=== PATIENT | female | born 1950 | race Caucasian/White ===

== ENCOUNTER → 2017-01-29 | Outpatient (CLI) | payer MEDICARE, OTHER | END | disposition home or self-care (01) | LOC: LAB.O 16:01 | PROVIDERS: ATTEND Nurse Practitioner Family | DX: I10 Essential (primary) hypertension (principal); E34.9 Endocrine disorder, unspecified; D51.0 Vitamin B12 deficiency anemia due to intrinsic factor deficiency; E56.9 Vitamin deficiency, unspecified ==

== ENCOUNTER → 2018-03-25 | Outpatient (CLI) | payer MEDICARE, OTHER ==
--- NOTE | 2018-03-25 14:26 | RAD ---
Two-view left forearm Indication: CRUSHING INJURY Comparison: None. Impression: Obliquely oriented acute appearing fracture of the distal shaft of the ulna noted with 3.5 mm ulnar displacement distal fracture fragment. A tiny segmental component may be present. A remote ununited ulnar styloid fracture noted. Mild subchondral cystic change proximal lunate. Soft tissue swelling distal forearm. Electronically signed by: Stiven Greene MD 03/25/2018 2:24 PM CDT
== END ==
LOC: RAD 12:23
PROVIDERS: ATTEND Nurse Practitioner Family
DX: S52.202A Unspecified fracture of shaft of left ulna, initial encounter for closed fracture (principal); M79.9 Soft tissue disorder, unspecified

== ENCOUNTER → 2018-04-07 | Outpatient (CLI) | payer MEDICARE, OTHER ==
--- NOTE | 2018-04-07 10:34 | RAD ---
EXAM DESCRIPTION: Forearm,Left CLINICAL HISTORY: 67 years Female, CLOSED FX OF ULNA COMPARISON: March 25, 2018. FINDINGS: Persistent spiral fracture through the distal ulnar shaft with mild overriding of the fracture fragments. Slight interval worsening of the displacement noted in comparison to prior radiograph dated March 25, 2018. No evidence of callus formation noted to suggest healing. Approximately 3 to 4 mm overriding of fracture fragments is seen. The proximal and distal radioulnar joints appear intact. The overlying soft tissues appear grossly unremarkable. Again noted is remote nonunited ulnar styloid process fracture. IMPRESSION: 1. Persistent spiral fracture through the distal ulnar shaft with slight interval worsening of the displacement, and mild overriding of fracture fragments. No evidence of interval healing noted. Electronically signed by: Ian Jaeger MD 04/07/2018 10:33 AM [facility]
== END ==
LOC: RAD 09:32
PROVIDERS: ATTEND Orthopaedic Surgery
DX: S52.202D Unspecified fracture of shaft of left ulna, subsequent encounter for closed fracture with routine healing (principal)

== ENCOUNTER → 2018-04-21 | Outpatient (CLI) | payer MEDICARE, OTHER ==
--- NOTE | 2018-04-21 11:54 | RAD ---
EXAM DESCRIPTION: Forearm,Left CLINICAL HISTORY: 67 years Female, CLOSED FRACTURE OF ULNA COMPARISON: Previous study April 07, 2018 FINDINGS: Oblique fracture of the distal left ulnar diaphysis is seen with slight medial offset of the distal fracture fragment similar to previous study. On the lateral view, no significant angulation is seen with slight dorsal offset unchanged. Minimal periosteal new bone formation and bridging callus is seen on the lateral view. Findings are consistent with early changes of healing. IMPRESSION: Distal left ulnar fracture without change in alignment. Early evidence of healing. Electronically signed by: Reggie Perez MD 04/21/2018 11:53 AM [facility]
== END ==
LOC: RAD 09:38
PROVIDERS: ATTEND Orthopaedic Surgery
DX: S52.202D Unspecified fracture of shaft of left ulna, subsequent encounter for closed fracture with routine healing (principal)

== ENCOUNTER → 2018-05-16 | Outpatient (CLI) | payer MEDICARE, OTHER ==
--- NOTE | 2018-05-16 09:53 | RAD ---
EXAM DESCRIPTION: Forearm,Left CLINICAL HISTORY: 67 years Female, CLOSED FRACTURE OF ULNA COMPARISON: Previous study April 21, 2018 FINDINGS: Mildly comminuted fracture of the distal diaphysis of the left ulna is seen. There is slight medial displacement of the distal fracture fragment with cortical offset measuring approximately 4 mm. On the lateral view there is no dorsal angulation. There is slight dorsal displacement and 2 mm. Comparing to the previous study, no change in alignment. Subtle bridging callus formation is present with minimal periosteal new bone formation dorsally. IMPRESSION: Healing fracture of the distal left ulna with no significant change in alignment. Electronically signed by: Reggie Perez MD 05/16/2018 9:52 AM [facility]
== END ==
LOC: RAD 09:33
PROVIDERS: ATTEND Orthopaedic Surgery
DX: S52.202D Unspecified fracture of shaft of left ulna, subsequent encounter for closed fracture with routine healing (principal)

== ENCOUNTER → 2018-06-27 | Outpatient (CLI) | payer MEDICARE, OTHER ==
--- NOTE | 2018-06-27 10:04 | RAD ---
EXAM DESCRIPTION: Forearm,Left CLINICAL HISTORY: 67 years Female, CLOSED FRACTURE OF SHAFT OF LEFT ULNA COMPARISON: Previous study May 16, 2018 FINDINGS: Comminuted fracture of the distal diaphysis of the left ulna is seen with periosteal new bone formation and bridging callus. No abnormal angulation. No change in contour since previous study. Healing has progressed since the previous exam with indistinctness of the fracture lines. Radius appears intact. Mild degenerative changes at the lateral carpus. IMPRESSION: Healing fracture of the distal left ulna. Electronically signed by: Reggie Perez MD 06/27/2018 10:02 AM [facility]
== END ==
LOC: RAD 09:09
PROVIDERS: ATTEND Orthopaedic Surgery
DX: S52.202D Unspecified fracture of shaft of left ulna, subsequent encounter for closed fracture with routine healing (principal)